=== PATIENT | male | born 1940 | race Caucasian/White ===

== ENCOUNTER 2021-02-01 20:46 | Emergency (ER) | payer MEDICARE ==
[~2021-02-01] VITALS: Ht 170.2 cm; Wt 90.9 kg
[2021-02-01] MEDS ORDERED: ASPIRIN 325 MG TABLET PO ONE (21:45)
--- NOTE | 2021-02-01 21:46 | PHYS DOC ---
Past Medical History Past Medical History: A-Fib Additional Past Medical Histor: NEUROPATHY, CHRONIC BACK PAIN Past Surgical History: Coronary Bypass Surgery, Other Additional Past Surgical Histo: hernia, dental Smoking Status: Former Smoker Alcohol Use: None Drug Use: None General Adult EDM: Chief Complaint: DIZZY/LIGHT HEADED HPI: HPI: Patient is a 80 year old male who presents with dizziness which occurred roughly 3 hours ago. He reported seeing double just before his dizzy spell and then feeling dizzy when he walked to the bathroom. The dizziness subsided when he sat back down. He did not lose consciousness or fall. He reports a similar episode before. Review of Systems: Review of Systems: Constitutional: Denies fever or chills Eyes: Denies redness or eye pain HENT: Denies nasal congestion or sore throat Respiratory: Denies cough or shortness of breath Cardiovascular: Denies chest pain or palpitations GI: Denies abdominal pain, nausea, or vomiting : Denies dysuria or hematuria Musculoskeletal: Denies back pain or joint pain Integument: Denies rash or skin lesions Neurologic: Denies headache, focal weakness or sensory changes Complete systems were reviewed and found to be within normal limits, except as documented in this note. Heart Score: C/O Chest Pain: N/A HEART Score for Chest Pain: HEART Score for Chest Pain Response (Comments) Value History Slighlty/Non-Suspicious 0 ECG Nonspecific Repolarizatio 1 Age > 65 2 Risk Factors 1 or 2 Risk Factors 1 Troponin < Normal Limit 0 Total 4 Risk Factors: Risk Factors: DM, Current or recent (<one month) smoker, HTN, HLP, family history of CAD, obesity. Risk Scores: Score 0 - 3: 2.5% MACE over next 6 weeks - Discharge Home Score 4 - 6: 20.3% MACE over next 6 weeks - Admit for Clinical Observation Score 7 - 10: 72.7% MACE over next 6 weeks - Early Invasive Strategies Current Medications: Current Medications Medications (Trade) Dose Ordered Sig/Alexander Start Time Stop Time Status Last Admin Dose Admin Aspirin (Elvin Aspirin) 325 mg 1X ONCE 02/01/21 21:45 02/01/21 21:46 UNV Allergies: Allergies: Allergies Coded Allergies Type Severity Reaction Last Updated Verified Unable to Assess 02/01/21 No Physical Exam: PE: Constitutional: Well developed, well nourished, no acute distress, non-toxic appearance HENT: Normocephalic, atraumatic Eyes: EOMI, conjunctiva normal, no discharge Neck: Normal range of motion, no tenderness, supple Lungs & Thorax: No respiratory distress, equal chest rise and fall, clear to auscultation Cardiovascular: No murmurs, 2+ radial pulse b/l Abdomen: Soft, no tenderness Skin: Warm, dry, no erythema, no rash Back: No tenderness, no CVA tenderness Extremities: No tenderness, ROM intact, 3+ edema bilateral Neurologic: Alert and oriented X 3, normal motor function, normal sensory function, no focal deficits noted Psychologic: Affect normal, judgment normal Current Patient Data: Vital Signs: Vital Signs Date Time Temp Pulse Resp B/P (MAP) Pulse Ox O2 Delivery O2 Flow Rate FiO2 02/01/21 20:52 98.1 103 24 148/87 99 Room Air 98.1 EKG: EKG: obtained 20:59 hrs 100 bpm QT 324 ms QTc 421 ms A Fib, baseline artifacts Radiology/Procedures: Radiology/Procedures: [] Course & Med Decision Making: Course & Med Decision Making Pertinent Labs studies reviewed. (See chart for details) Patient presents with dizzy spell that occurred 2 to 3 hours before showing up to the ED. Patient did not actually lose consciousness and did not fall. PE was unremarkable. Ordered EKG and cardiac enzymes. EKG and cardiac enzyme labs do not indicate NE. Heart rate is consistently between 90 and 102. Patient feels okay and is okay with being discharged. Patient will follow-up with dietitian research in 4 days regarding A fib. Patient requiring admission for further evaluation and treatment. Discussed with (hospitalist) who is in agreement with admission. Discussed findings and plan with patient, who acknowledges understanding and agreement. Dragon Disclaimer: Dragon Disclaimer: This electronic medical record was generated, in whole or in part, using a voice recognition dictation system. Departure Departure Impression: Primary Impression: Dizziness Additional Impression: Atrial fibrillation Qualified Codes: I48.91 - Unspecified atrial fibrillation Disposition: HOME / SELF CARE / HOMELESS Condition: STABLE Referrals: JENNIFER LENTZ (PCP) ZARI BARR MD Patient Instructions: Atrial Fibrillation, Iqar-fp-Taen, Dizziness, [id number]-ww-[id number] Additional Instructions: Increase your Aspirin to 325mg (1 full strength) daily. Follow closely with cardiology for further management. Return for any worsening of symptoms. ZOHAIB DODD DO Feb 01, 2021 21:46
[2021-02-01 22:02] LABS: BASO # 0.1 x10^3/uL (0.0-0.2); BASO % 1 % (0-3); EOS # 0.2 x10^3/uL (0.0-0.7); EOS % 3 % (0-3); HEMATOCRIT 38.5 % (39.0-53.0); LYMPH % 27 % (24-48); MEAN CORPUSCULAR HEMOGLOBIN 30 pg (25-35); MEAN CORPUSCULAR HGB CONC 34 g/dL (31-37); MEAN CORPUSCULAR VOLUME 89 fL (79-100); MONO # 0.6 x10^3/uL (0.0-1.1); MONO % 8 % (0-9); NEUT # 4.7 x10^3/uL (1.8-7.7); NEUT % 62 % (31-73); PLATELET COUNT 284 x10^3/uL (140-400); RED BLOOD COUNT 4.31 x10^6/uL (4.30-5.70); RED CELL DISTRIBUTION WIDTH 13.6 % (11.5-14.5); WHITE BLOOD COUNT 7.7 x10^3/uL (4.0-11.0)
[2021-02-01 22:12] LABS: CALCIUM 9.4 mg/dL (8.5-10.1); CREATININE 0.9 mg/dL (0.7-1.3); GFR 80.8; POTASSIUM 3.8 mmol/L (3.5-5.1)
[2021-02-01 22:18] LABS: ALBUMIN/GLOBULIN RATIO 0.7 (1.0-1.7); TOTAL BILIRUBIN 0.2 mg/dL (0.2-1.0); TOTAL PROTEIN 7.2 g/dL (6.4-8.2)
[2021-02-01 22:53] LABS: BILIRUBIN,URINE NEGATIVE (NEG); CLARITY,URINE CLEAR; COLOR,URINE YELLOW; NITRITE,URINE NEGATIVE (NEG); PH,URINE 7.5 (<5.0-8.0); PROTEIN,URINE NEGATIVE (NEG-TRACE); UROBILINOGEN,URINE 0.2 mg/dL (0.2 mg/dL)
[2021-02-01 22:59] LABS: BACTERIA,URINE 0 /HPF (0-FEW); RBC,URINE 0 /HPF (0-2); WBC,URINE OCC /HPF (0-4)
[2021-02-01 23:53] VITALS: BP 142/107
--- NOTE | 2021-02-02 14:54 | EKG ---
[facility] [address] [place] [address] Test Date: 2021-02-01 Test Time: 20:59:17 Pat Name: ALBARO HOOD Department: Room: Gender: M Ceramics Teacher: : 1940 Requested By: ZOHAIB DODD Order Number: [id number] Reading MD: Measurements Intervals [place] Rate: 100 P: [place]: QRS: 67 QRSD: 88 T: -54 QT: 324 QTc: 421 Interpretive Statements ATRIAL FLUTTER ST & T ABNORMALITY, CONSIDER INFERIOR ISCHEMIA OR LEFT VENTRICULAR STRAIN ABNORMAL ECG RI6.02 No previous ECG available for comparison
== END 2021-02-02 00:25 | disposition home or self-care (01) ==
LOC: ER 20:46
DX: I48.91 Unspecified atrial fibrillation (principal); R42 Dizziness and giddiness; H53.2 Diplopia; G89.29 Other chronic pain; Z95.1 Presence of aortocoronary bypass graft
CPT/HCPCS: 36415; 80053; 81001; 82553; 83735; 84484; 85025; 93005; 99285

== ENCOUNTER → 2021-03-10 | Outpatient (CLI) | payer MEDICARE ==
--- NOTE | 2021-03-10 15:27 | CARD ---
MR#: [id number] Date of Study: 03/10/2021 Ordering Physician: ZARI BARR, Referring Physician: ZARI BARR, Tech: Tamela Washington [facility] APPROVED REPORT EXAM: Two-dimensional and M-mode echocardiogram with Doppler and color Doppler. Other Information Quality : AverageHR: 84bpm Rhythm : Atrial Fibrillation INDICATION Atrial Fibrillation Cardiac Disease: CAD RISK FACTORS Hypertension Obesity Hyperlipidemia 2D DIMENSIONS RVDd3.2 (2.9-3.5cm)Left Atrium(2D)4.2 (1.6-4.0cm) IVSd0.9 (0.7-1.1cm)Aortic Root(2D)3.3 (2.0-3.7cm) LVDd4.3 (3.9-5.9cm)LVOT Diameter1.9 (1.8-2.4cm) PWd1.0 (0.7-1.1cm)LVDs3.0 (2.5-4.0cm) FS (%) 29.9 %SV47.2 ml LVEF(%)57.4 (>50%) Aortic Valve AoV Peak Miguel.113.7cm/sAoV VTI19.4cm AO Peak GR.5.2mmHgLVOT Peak Miguel.84.7cm/s AO Mean GR.2mmHgAVA (VMAX)2.21cm2 Pulmonary Valve PV Peak Nyarnwsn442.8cm/s Tricuspid Valve TR P. Kkhrpufb792nz/sTR Peak Gr.28mmHg LEFT VENTRICLE The left ventricle is normal size. There is normal left ventricular wall thickness. The left ventricu lar systolic function is normal. Estimated ejection fraction 60%. There is normal LV segmental wall motion. RIGHT VENTRICLE The right ventricle is normal size. There is normal right ventricular wall thickness. Systolic functi on is borderline reduced. ATRIA The left atrium size is normal. The right atrium size is normal. The interatrial septum is intact wit h no evidence for an atrial septal defect or patent foramen ovale as noted on 2-D or Doppler imaging. AORTIC VALVE The aortic valve is thickened but opens well. Doppler and Color Flow revealed trace aortic regurgitat ion. There is no significant aortic valvular stenosis. MITRAL VALVE The mitral valve is thickened but opens well. There is no evidence of mitral valve prolapse. There is no mitral valve stenosis. Doppler and Color-flow revealed mild mitral regurgitation. TRICUSPID VALVE The tricuspid valve is normal in structure and function. Doppler and Color Flow revealed mild tricusp id regurgitation. Estimated PAP 32 mmHg. There is no tricuspid valve stenosis. PULMONIC VALVE The pulmonary valve is normal in structure and function. Doppler and Color Flow revealed trace pulmon ic valvular regurgitation. GREAT VESSELS The aortic root is normal in size. The ascending aorta is normal in size. The IVC is normal in size a nd collapses >50% with inspiration. PERICARDIAL EFFUSION There is no evidence of significant pericardial effusion. Critical Notification Critical Value: No <Conclusion> The left ventricular systolic function is normal. Estimated ejection fraction 60%. There is normal LV segmental wall motion. Mild mitral regurgitation. Mild tricuspid regurgitation. Estimated PAP 32 mmHg. There is no evidence of significant pericardial effusion. Signed by : Maldonado Ruiz, Electronically Approved : 03/10/2021 15:27:22
== END ==
LOC: ECHO 07:24
PROVIDERS: ATTEND Internal Medicine Cardiovascular Disease
DX: I08.1 Rheumatic disorders of both mitral and tricuspid valves (principal); I25.10 Atherosclerotic heart disease of native coronary artery without angina pectoris
CPT/HCPCS: 93306

== ENCOUNTER 2021-03-15 05:46 | Emergency (ER) | payer MEDICARE ==
[~2021-03-15] VITALS: Ht 180.3 cm; Wt 86.0 kg
[2021-03-15] MEDS ORDERED: TRANEXAMIC ACID 1,000 MG/10 ML VIAL. TOP ONE (06:30)
[2021-03-15] MEDS ORDERED: OXYMETAZOLINE 0.05% NASAL SPRAY 30ML BOTTLE. NS ONE (07:30)
--- NOTE | 2021-03-15 08:05 | ED.ADGEN ---
Past Medical History Past Medical History: A-Fib Additional Past Medical Histor: NEUROPATHY, CHRONIC BACK PAIN,BPH Past Surgical History: Coronary Bypass Surgery, Other Additional Past Surgical Histo: hernia, dental Smoking Status: Former Smoker Alcohol Use: None Drug Use: None General Adult EDM: Chief Complaint: NOSEBLEED HPI: HPI: Patient is a 80 year old male coming in from nursing facility for left-sided nosebleed. Patient states he had a wart removed from the septal area of his nose yesterday. Woke up at 3 AM coughing up blood. Patient states of bleeding is worse with coughing. Denies any use of blood thinners. Review of Systems: Review of Systems: All other systems within normal limits except for as noted in the HPI Current Medications: Current Medications Medications (Trade) Dose Ordered Sig/Alexander Start Time Stop Time Status Last Admin Dose Admin Lorazepam (Ativan Inj) 1 mg 1X ONCE 03/15/21 08:00 03/15/21 08:05 DC 03/15/21 07:50 1 MG Oxymetazoline HCl (Afrin) 2 spray 1X ONCE 03/15/21 07:30 03/15/21 07:31 DC 03/15/21 07:46 2 SPRAY Tranexamic Acid (Cyklokapron) 1,000 mg 1X ONCE 03/15/21 06:30 03/15/21 06:31 DC 03/15/21 06:29 1,000 MG Allergies: Allergies: Allergies Coded Allergies Type Severity Reaction Last Updated Verified hydrocodone Adverse Reaction Unknown 03/15/21 Yes Physical Exam: PE: Constitutional: Well developed, well nourished, no acute distress, non-toxic appearance. [] HENT: Normocephalic, atraumatic, bilateral external ears normal, bleeding from left nare Eyes: PERRLA, conjunctiva normal, no discharge. [] Neck: No rigidity, supple, no stridor. [] Cardiovascular: Regular rate and rhythm, brisk cap refill [] Lungs & Thorax: Non labored symmetric respirations, no tachypnea or respiratory distress [] Abdomen: Soft, nondistended. Skin: Warm, dry, no erythema, no rash. [] Back: Unremarkable Extremities: No deformities, range of motion grossly intact, no lower extremity edema [] Neurologic: Alert and oriented X 3, no focal deficits noted. [] Psychologic: Affect normal, judgement normal, mood normal. [] Current Patient Data: Labs: Laboratory Tests Test 03/15/21 07:45 White Blood Count 11.2 x10^3/uL (4.0-11.0) H Red Blood Count 4.31 x10^6/uL (4.30-5.70) Hemoglobin 13.1 g/dL (13.0-17.5) Hematocrit 38.7 % (39.0-53.0) L Mean Corpuscular Volume 90 fL (79-100) Mean Corpuscular Hemoglobin 30 pg (25-35) Mean Corpuscular Hemoglobin Concent 34 g/dL (31-37) Red Cell Distribution Width 13.5 % (11.5-14.5) Platelet Count 258 x10^3/uL (140-400) Neutrophils (%) (Auto) 70 % (31-73) Lymphocytes (%) (Auto) 22 % (24-48) L Monocytes (%) (Auto) 5 % (0-9) Eosinophils (%) (Auto) 2 % (0-3) Basophils (%) (Auto) 1 % (0-3) Neutrophils # (Auto) 7.8 x10^3/uL (1.8-7.7) H Lymphocytes # (Auto) 2.4 x10^3/uL (1.0-4.8) Monocytes # (Auto) 0.6 x10^3/uL (0.0-1.1) Eosinophils # (Auto) 0.3 x10^3/uL (0.0-0.7) Basophils # (Auto) 0.1 x10^3/uL (0.0-0.2) Prothrombin Time 13.8 SEC (11.7-14.0) Prothrombin Time INR 1.1 (0.8-1.1) Sodium Level 144 mmol/L (136-145) Potassium Level 3.6 mmol/L (3.5-5.1) Chloride Level 107 mmol/L (98-107) Carbon Dioxide Level 31 mmol/L (21-32) Anion Gap 6 (6-14) Blood Urea Nitrogen 20 mg/dL (8-26) Creatinine 1.3 mg/dL (0.7-1.3) Estimated GFR (Cockcroft-Gault) 52.9 BUN/Creatinine Ratio 15 (6-20) Glucose Level 127 mg/dL (70-99) H Calcium Level 9.2 mg/dL (8.5-10.1) Magnesium Level 2.0 mg/dL (1.8-2.4) Total Bilirubin 0.3 mg/dL (0.2-1.0) Aspartate Amino Transferase (AST) 22 U/L (15-37) Alanine Aminotransferase (ALT) 38 U/L (16-63) Alkaline Phosphatase 89 U/L (46-116) Creatine Kinase 189 U/L (39-308) Myoglobin 100 ng/mL (16-96) H Troponin I Quantitative < 0.017 ng/mL (0.000-0.055) Total Protein 7.1 g/dL (6.4-8.2) Albumin 3.5 g/dL (3.4-5.0) Albumin/Globulin Ratio 1.0 (1.0-1.7) Laboratory Tests 03/15/21 07:45 Laboratory Tests 03/15/21 07:45 Vital Signs: Vital Signs Date Time Temp Pulse Resp B/P (MAP) Pulse Ox O2 Delivery O2 Flow Rate FiO2 03/15/21 07:58 88 Room Air 03/15/21 07:50 92 84/66 (72) 3.0 03/15/21 07:49 12 03/15/21 05:48 98.2 98.2 EKG: EKG: Heart rate 100 bpm, irregular regular rhythm, normal axis, no ST elevation or depression [] Heart Score: C/O Chest Pain: No Risk Factors: Risk Factors: DM, Current or recent (<one month) smoker, HTN, HLP, family history of CAD, obesity. Risk Scores: Score 0 - 3: 2.5% MACE over next 6 weeks - Discharge Home Score 4 - 6: 20.3% MACE over next 6 weeks - Admit for Clinical Observation Score 7 - 10: 72.7% MACE over next 6 weeks - Early Invasive Strategies Radiology/Procedures: Radiology/Procedures: [facility] [address] [place] [address] IMAGING REPORT Signed PATIENT: ALBARO HOOD ACCOUNT: [id number] : 1940 LOCATION: ER AGE: 80 SEX: M EXAM STATUS: REG ER ORD. PHYSICIAN: SALLY HERNANDEZ MD REASON: syncope PROCEDURE: CHEST AP ONLY Exam Date: 03/15/2021 7:58 AM XR CHEST 1V Indication: Reason: syncope / Spl. Instructions: / History: . FINDINGS/ IMPRESSION: The aorta is calcified. Postoperative changes are noted. The cardiac silhouette and pulmonary vasculature are within normal limits. There is no focal consolidation, pleural effusion or pneumothorax. Degenerative changes are seen in the spine. Electronically signed by: Pankaj Mora MD (03/15/2021 8:18 AM) [facility] DICTATED and SIGNED BY: PANKAJ MORA MD DATE: 03/15/21 [id number] [] Course & Med Decision Making: Course & Med Decision Making Pertinent Labs and Imaging studies reviewed. (See chart for details) Patient initially managed conservatively due to solo complaint of epistaxis. Patient had multiple episodes of seizure-like activity with decreased consciousness. Coughed up a large clot was breathing better. Attempted hemorrhage control with thrombin soaked gauze with pressure, Afrin with pressure, and then a Rhino Rocket soaked in Afrin placed in left nare. Patient observed in the emergency department with no bleeding around Rhino Rocke t packing. Discharged with return precautions and instructions to follow-up with his ENT provider for Rhino Rocket removal. [] Dragon Disclaimer: Dragon Disclaimer: This electronic medical record was generated, in whole or in part, using a voice recognition dictation system. Departure Departure Impression: Primary Impression: Left-sided epistaxis Disposition: HOME / SELF CARE / HOMELESS Condition: STABLE Referrals: JENNIFER LENTZ [employer]ENEWABLE ENERGY TRADER (PCP) Patient Instructions: Nosebleed Additional Instructions: Have packing removed by ENT or primary care in 48 to 36 hours Scripts Amoxicillin/Potassium Clav (AUGMENTIN 875-125 TABLET) 1 Each Tablet 1 TAB PO Q12HR for antibiotic for 5 Days, #10 TAB Prov: SALLY HERNANDEZ MD 03/15/21 SALLY HERNANDEZ MD Mar 15, 2021 08:05
[2021-03-15 08:13] LABS: BASO # 0.1 x10^3/uL (0.0-0.2); BASO % 1 % (0-3); EOS # 0.3 x10^3/uL (0.0-0.7); EOS % 2 % (0-3); HEMATOCRIT 38.7 % (39.0-53.0); HEMOGLOBIN 13.1 g/dL (13.0-17.5); LYMPH # 2.4 x10^3/uL (1.0-4.8); LYMPH % 22 % (24-48); MEAN CORPUSCULAR HEMOGLOBIN 30 pg (25-35); MEAN CORPUSCULAR HGB CONC 34 g/dL (31-37); MEAN CORPUSCULAR VOLUME 90 fL (79-100); MONO # 0.6 x10^3/uL (0.0-1.1); MONO % 5 % (0-9); NEUT # 7.8 x10^3/uL (1.8-7.7); NEUT % 70 % (31-73); PLATELET COUNT 258 x10^3/uL (140-400); RED BLOOD COUNT 4.31 x10^6/uL (4.30-5.70); RED CELL DISTRIBUTION WIDTH 13.5 % (11.5-14.5); WHITE BLOOD COUNT 11.2 x10^3/uL (4.0-11.0)
[2021-03-15 08:14] LABS: CALCIUM 9.2 mg/dL (8.5-10.1); CREATININE 1.3 mg/dL (0.7-1.3); GFR 52.9; POTASSIUM 3.6 mmol/L (3.5-5.1)
[2021-03-15 08:17] LABS: PROTHROMBIN TIME PATIENT 13.8 SEC (11.7-14.0)
[2021-03-15 08:21] LABS: ALBUMIN 3.5 g/dL (3.4-5.0); TOTAL BILIRUBIN 0.3 mg/dL (0.2-1.0); TOTAL PROTEIN 7.1 g/dL (6.4-8.2)
--- NOTE | 2021-03-15 08:21 | RAD ---
Exam Date: 03/15/2021 7:58 AM XR CHEST 1V Indication: Reason: syncope / Spl. Instructions: / History: . FINDINGS/ IMPRESSION: The aorta is calcified. Postoperative changes are noted. The cardiac silhouette and pulmonary vasculature are within normal limits. There is no focal consolidation, pleural effusion or pneumothorax. Degenerative changes are seen in the spine. Electronically signed by: Kennedy Mora MD (03/15/2021 8:18 AM) TETO
[2021-03-15] MEDS ORDERED: AMOX1TAB61 PO (09:26)
[2021-03-15 10:01] VITALS: BP 123/81
--- NOTE | 2021-03-18 11:48 | EKG ---
[facility] [address] [place] [address] Test Date: 2021-03-15 Test Time: 07:56:30 Pat Name: ALBARO HOOD Department: Room: Gender: M Commercial Representative: : 1940 Requested By: SALLY HERNANDEZ Order Number: [id number] Reading MD: Ricco Graves MD Measurements Intervals [place] Rate: 112 P: [place]: QRS: 54 QRSD: 86 T: -42 QT: 338 QTc: 463 Interpretive Statements ATRIAL FIBRILLATION NON-SPECIFIC ST/T CHANGES Electronically Signed On 03-21-2021 9:52:36 CDT by Ricco Graves MD
== END 2021-03-15 10:26 | disposition home or self-care (01) ==
LOC: ER 05:46
DX: R04.0 Epistaxis (principal); R04.2 Hemoptysis; I48.91 Unspecified atrial fibrillation; G89.29 Other chronic pain; Z95.1 Presence of aortocoronary bypass graft; Z88.5 Allergy status to narcotic agent
CPT/HCPCS: 30901; 36415; 71045; 80053; 82550; 83735; 83874; 84484; 85025; 85610; 86850; 86900; 86901; 93005; 96374; 99285; J2060; J3490

== ENCOUNTER 2021-03-30 08:52 | Emergency (ER) | payer MEDICARE ==
[~2021-03-30] VITALS: Ht 177.8 cm; Wt 84.0 kg
[~2021-03-30 08:52] MED LIST: AMOX1TAB61 PO
[2021-03-30] MEDS ORDERED: OXYMETAZOLINE 0.05% NASAL SPRAY 30ML BOTTLE. NS ONE (09:00)
--- NOTE | 2021-03-30 09:25 | PHYS DOC ---
Past Medical History Past Medical History: A-Fib Additional Past Medical Histor: NEUROPATHY, CHRONIC BACK PAIN,BPH Past Surgical History: Coronary Bypass Surgery, Other Additional Past Surgical Histo: hernia, dental Smoking Status: Former Smoker Alcohol Use: None Drug Use: None General Adult EDM: Chief Complaint: NOSEBLEED HPI: HPI: 80-year-old male with a history of epistaxis, currently anticoagulated on Eliquis presents to the emergency department complaining of nosebleed which he states is in the left side of his nostril and also on the right side as well. He reports that the nosebleed started this morning. He was last seen in the emergency department on 03/15/2021 for similar presentation and had a Rhino Rocket placed and was discharged home. The patient denies any pain or trauma to the area. He admits to some blood in the back of his mouth but mostly coming out of the nose. The patient denies nausea, vomiting, fever, chills, chest pain, shortness of breath, cough, recent trauma, or any other complaints. Review of Systems: Review of Systems: ROS otherwise negative except for what was mentioned in the HPI Heart Score: C/O Chest Pain: No Current Medications: Current Medications Medications (Trade) Dose Ordered Sig/Alexander Start Time Stop Time Status Last Admin Dose Admin Oxymetazoline HCl (Afrin) 2 spray 1X ONCE 03/30/21 09:00 03/30/21 09:01 DC 03/30/21 09:10 2 SPRAY Allergies: Allergies: Allergies Coded Allergies Type Severity Reaction Last Updated Verified hydrocodone Adverse Reaction Unknown 03/15/21 Yes Physical Exam: PE: Constitutional: Mild distress, short covered in blood. HENT: Atraumatic head, there is copious blood coming from left nare, large blood clot was appreciated on initial exam in the left nostril. Eyes: PERRLA, EOMI, conjunctiva normal, no discharge. Neck: Normal range of motion, supple, no stridor. Cardiovascular: Heart rate regular rhythm. 2+ radial pulses Lungs & Thorax: No respiratory distress, symmetrical expansion. Skin: Warm, dry. Extremities: No cyanosis, steady gait. Neurologic: Alert and oriented X 3, normal motor function, normal sensory function, no focal deficits noted. GCS 15. Psychologic: Affect normal, judgment normal, mood normal. Current Patient Data: Labs: Laboratory Tests Test 03/30/21 09:25 White Blood Count 6.8 x10^3/uL (4.0-11.0) Red Blood Count 3.92 x10^6/uL (4.30-5.70) Hemoglobin 12.0 g/dL (13.0-17.5) Hematocrit 35.5 % (39.0-53.0) Mean Corpuscular Volume 91 fL (79-100) Mean Corpuscular Hemoglobin 31 pg (25-35) Mean Corpuscular Hemoglobin Concent 34 g/dL (31-37) Red Cell Distribution Width 13.7 % (11.5-14.5) Platelet Count 325 x10^3/uL (140-400) Neutrophils (%) (Auto) 51 % (31-73) Lymphocytes (%) (Auto) 37 % (24-48) Monocytes (%) (Auto) 6 % (0-9) Eosinophils (%) (Auto) 5 % (0-3) Basophils (%) (Auto) 1 % (0-3) Neutrophils # (Auto) 3.4 x10^3/uL (1.8-7.7) Lymphocytes # (Auto) 2.5 x10^3/uL (1.0-4.8) Monocytes # (Auto) 0.4 x10^3/uL (0.0-1.1) Eosinophils # (Auto) 0.3 x10^3/uL (0.0-0.7) Basophils # (Auto) 0.1 x10^3/uL (0.0-0.2) Prothrombin Time 14.5 SEC (11.7-14.0) Prothromb Time International Ratio 1.1 (0.8-1.1) Activated Partial Thromboplast Time 30 SEC (24-38) Sodium Level 142 mmol/L (136-145) Potassium Level 3.5 mmol/L (3.5-5.1) Chloride Level 104 mmol/L (98-107) Carbon Dioxide Level 31 mmol/L (21-32) Anion Gap 7 (6-14) Blood Urea Nitrogen 17 mg/dL (8-26) Creatinine 1.8 mg/dL (0.7-1.3) Estimated GFR (Cockcroft-Gault) 36.3 Glucose Level 102 mg/dL (70-99) Calcium Level 8.8 mg/dL (8.5-10.1) Vital Signs: Vital Signs Date Time Temp Pulse Resp B/P (MAP) Pulse Ox O2 Delivery O2 Flow Rate FiO2 03/30/21 08:52 98.5 88 12 143/88 (106) 97 Room Air 98.5 Course & Med Decision Making: Course & Med Decision Making 0910: Per chart review, patient had a Rhino Rocket placed and was discharged home with ENT follow-up the last time he had a epistaxis event. Patient with active bleeding and was on Eliquis. Appears to be initially anterior, we will attempt Afrin and pressure for 20 minutes 0930: Patient continues to bleed, a Rhino Rocket was placed in the left nare with good tamponade effect. We will observe the patient 1130: No further bleeding at the site, Rhino Rocket is tolerable, patient will be discharged to follow-up with ear nose and throat in 2 to 3 days with packing in place Departure Departure Impression: Primary Impression: Left-sided epistaxis Disposition: 01 HOME / SELF CARE / HOMELESS Condition: IMPROVED Referrals: JENNIFER LENTZ (PCP) Patient Instructions: Nosebleed, Hijm-ly-Etdu Additional Instructions: You were seen in the emergency department for a nosebleed. He had packing placed in your left nostril which will need to remain there until you're seen by an ear nose and throat doctor in 2 to 3 days. If you have continued pain or unable to tolerate the nasal packing, please come to the emergency department for further care. it is important to realize that we can only evaluate you during the time that you are in her department. Occasionally health conditions can worsen upon leaving the emergency department. If this were to happen, please return to and allow us the opportunity to reevaluate you. It is a pleasure to take care of your health needs. Return to the ER if your symptoms worsen, do not improve, or if you develop additional symptoms that are concerning to you RODRIOG DIEGO DO Mar 30, 2021 09:25
[2021-03-30 09:36] LABS: BASO # 0.1 x10^3/uL (0.0-0.2); BASO % 1 % (0-3); EOS # 0.3 x10^3/uL (0.0-0.7); EOS % 5 % (0-3); HEMATOCRIT 35.5 % (39.0-53.0); LYMPH # 2.5 x10^3/uL (1.0-4.8); LYMPH % 37 % (24-48); MEAN CORPUSCULAR HEMOGLOBIN 31 pg (25-35); MEAN CORPUSCULAR HGB CONC 34 g/dL (31-37); MEAN CORPUSCULAR VOLUME 91 fL (79-100); MONO # 0.4 x10^3/uL (0.0-1.1); MONO % 6 % (0-9); NEUT # 3.4 x10^3/uL (1.8-7.7); NEUT % 51 % (31-73); PLATELET COUNT 325 x10^3/uL (140-400); RED BLOOD COUNT 3.92 x10^6/uL (4.30-5.70); RED CELL DISTRIBUTION WIDTH 13.7 % (11.5-14.5); WHITE BLOOD COUNT 6.8 x10^3/uL (4.0-11.0)
[2021-03-30] MEDS ORDERED: fentaNYL PF VIAL 100 MCG/2 ML VIAL IVP ONE (09:45)
[2021-03-30 09:46] LABS: CALCIUM 8.8 mg/dL (8.5-10.1); CREATININE 1.8 mg/dL (0.7-1.3); GFR 36.3; POTASSIUM 3.5 mmol/L (3.5-5.1)
[2021-03-30 10:06] LABS: PROTHROMBIN TIME PATIENT 14.5 SEC (11.7-14.0)
[2021-03-30 11:53] VITALS: BP 144/82
== END 2021-03-30 12:01 | disposition home or self-care (01) ==
LOC: ER 08:52
DX: R04.0 Epistaxis (principal); I48.91 Unspecified atrial fibrillation; G89.29 Other chronic pain; Z95.1 Presence of aortocoronary bypass graft; Z88.5 Allergy status to narcotic agent
CPT/HCPCS: 30901; 36415; 80048; 85025; 85610; 85730; 86850; 86900; 86901; 96374; 99285; J3010